=== PATIENT | male | born 1960 | race African-American/Black ===

== ENCOUNTER 2016-12-30 10:54 | Day surgery (SDC) | payer OTHER ==
[2016-12-26 17:04] VITALS: BMI 34.7
[~2016-12-30 10:54] MED LIST: BUPIVACAINE HCL/PF 0.5% (5MG/ML) 10 ML VIAL IJ ONE; LIDOCAINE HCL 1%, 10 MG/ML (20ML VIAL) IJ ONE
[2016-12-30] MEDS ORDERED: LIDOCAINE HCL 1%, 10 MG/ML (20ML VIAL) ONE ×2 (12:38→13:49)
[2016-12-30] MEDS ORDERED: BUPIVACAINE HCL/PF 0.5% (5MG/ML) 10 ML VIAL ONE (13:49)
[2016-12-30] MEDS ORDERED: MIDAZOLAM HCL 2 MG/2 ML SINGLE DOSE VIAL ONE ×2 (13:57→14:01)
[2016-12-30] MEDS ORDERED: PROPOFOL 20 ML ONE (14:09)
[2016-12-30] MEDS ORDERED: BUPIVACAINE HCL/PF 0.5% (5MG/ML) 10 ML VIAL IJ ONE (14:18)
[2016-12-30] MEDS ORDERED: LIDOCAINE HCL 1%, 10 MG/ML (20ML VIAL) IJ ONE (14:18)
--- NOTE | 2016-12-30 14:53 | OP ---
Operative Note - Note: Operative Date: 12/30/16 Pre-Operative Diagnosis: lipoma right anterior chest wall Operation: excision lipoma Findings: 5.1 cm. subfascial lipoma Post-Operative Diagnosis: Same as Pre-op Surgeon: Aubrey Guillermo Undercar Specialist: Melissa Valerio Anesthesia: MAC Specimens Removed: lipoma Estimated Blood Loss (mls): 5 Operative Report Dictated: Yes
[2016-12-30 15:46] VITALS: TEMP 98.5
[2016-12-30 16:51] VITALS: BP 145/78; PULSE 82
--- NOTE | 2017-01-01 10:23 | OP ---
DATE OF OPERATION: 12/30/2016 PREOPERATIVE DIAGNOSIS: Lipoma, right anterior chest wall. POSTOPERATIVE DIAGNOSIS: Lipoma, right anterior chest wall. PROCEDURE: Excision lipoma, right anterior chest wall. SURGEON: Aubrey Guillermo MD DIP STAND LOADER: Melissa Valerio PA-C ANESTHESIA: Local with IV sedation. OPERATIVE FINDINGS: There was an approximately 5.1-cm subfascial lipoma below the right clavicle laterally in the chest wall. The rest of the findings were unremarkable. DESCRIPTION OF PROCEDURE: The patient was placed on the operating table in supine position, and the right chest was prepped with ChloraPrep and draped in sterile fashion. A time-out was taken, and an incision mapped out over the palpable abnormality. The area infiltrated with 1% lidocaine and 0.5% Marcaine in equal concentration. The incision was made with the scalpel and taken down through skin and subcutaneous tissue, and the fascia at the anterior chest wall and the lipoma identified. It was mobilized using blunt and sharp dissection, and then traced down to its pedicle in the chest wall. The pedicle was clamped. The lipoma excised and sent for pathological examination. The pedicle was ligated with 2-0 Vicryl suture, and then hemostasis was secured with electrocautery. The wound was copiously irrigated with sterile saline and closed in layers with interrupted 2-0 Vicryl for the deep fascia, interrupted 3-0 Vicryl for the deep dermis, and 4-0 Biosyn in a subcuticular continuous fashion to reapproximate the skin edges. Steri-Strips and dry sterile dressings were placed, and the procedure terminated at this point. The patient was transferred to the post-anesthesia care unit in stable condition, awake and alert. ESTIMATED BLOOD LOSS: Minimal. DRAINS: None. SPECIMENS: Lipoma to Pathology. I, Aubrey Guillermo, was physically present in the operating room from the time the patient was placed on the operating table until he was transferred to the post-anesthesia care unit in my accompaniment. MD JESUS Gale/[id number]
--- NOTE | 2017-01-01 13:21 | PATH ---
Surgical Pathology Report Patient Name: HEYDI GARCIA [facility]. Rec. #: [id number] /Age/Gender: 1960 (Age: 56) / M Account: [id number] Location: [facility] Taken: 12/30/2016 Received: 12/31/2016 Reported: 01/01/2017 Physicians: Aubrey Guillermo MD Specimen(s) Received SOFT TISSUE MASS OF RIGHT ANTERIOR CHEST WALL Clinical History Lipoma right anterior chest wall Final Diagnosis SOFT TISSUE, RIGHT ANTERIOR CHEST WALL, MASS, EXCISION: CONSISTENT WITH LIPOMA WITH DEGENERATIVE CHANGES. Electronically Signed Jaime Womack M.D. Gross Description Received in formalin labeled "soft tissue mass right anterior chest wall" is a 3.5 x 3.2 x 2.0 cm portion of yellow lobulated adipose tissue. Sectioning reveals homogeneous yellow, smooth fat. No areas of hemorrhage or necrosis are identified. Hot Wire Glass Tube Cutter sections are submitted in 2 cassettes. /12/31/2016 saudi12/31/2016
== END 2016-12-30 16:51 | disposition home or self-care (01) ==
LOC: JASU-SURG 10:54
PROVIDERS: ATTEND Surgery
PROC: 0JB60ZZ Excision of Chest Subcutaneous Tissue and Fascia, Open Approach (ICD-10-PCS; principal; 2016-12-30 12:30)
DX: D17.1 Benign lipomatous neoplasm of skin and subcutaneous tissue of trunk (principal)
CPT/HCPCS: 88304-TC; 94760

== ENCOUNTER 2024-10-15 15:05 | Emergency (ER) | payer OTHER ==
[2024-10-15 15:14] VITALS: BP 180/86; PULSE 84; RESP 18; TEMP 97.9; BMI 31.6
== END 2024-10-15 17:31 | disposition home or self-care (01) ==
LOC: JER 15:05
DX: I10 Essential (primary) hypertension (principal)
CPT/HCPCS: 93005; 93010; 99283-25